=== PATIENT | female | born 1995 | race Caucasian/White ===

== ENCOUNTER → 2018-02-05 | Outpatient (CLI) | payer OTHER | LOC: M RAD 07:59 | DX: R10.11 Right upper quadrant pain (principal) ==

== ENCOUNTER → 2018-03-20 | Outpatient (CLI) | payer OTHER ==
[2018-03-20 10:47] LABS: ALBUMIN 4.2 GM/DL (3.2-5.2); ALBUMIN/GLOBULIN RATIO 1.27 (1.00-1.93); ALKALINE PHOSPHATASE 68 U/L (45-117); ALT/SGPT 21 U/L (12-78); AST/SGOT 13 U/L (7-37); BILIRUBIN,DIRECT 0.1 MG/DL (0.0-0.2); BILIRUBIN,TOTAL 0.4 MG/DL (0.2-1.0); TOTAL PROTEIN 7.5 GM/DL (6.4-8.2)
[2018-03-20 10:48] LABS: CONTROL LINE HPYORI INT CTR LINE PRESENT; H PYLORI QUALITATIVE IgG NEGATIVE (NEGATIVE)
[2018-03-22 14:14] LABS: ANTI-SMOOTH MUSCLE ANTIBODY 11 Units (0-19)
[2018-03-22 14:14] LABS: ANTI-MITOCHONDRIAL ANTIBODY 1.8 Units (0.0-20.0); ANTINUCLEAR ANTIBODIES DIRECT Negative (Negative); ENDOMYSIAL ABY IgA Negative (Negative); IGASUB2 73.7 mg/dL (73.2-301.2); IGASUB3 13.4 mg/dL (13.4-97.9); IgA SERUM (part of Subclasses) 91 mg/dL (87-352); LIVER-KIDNEY MICROSOMAL ABY 0.7 Units (0.0-20.0); TISSUE TRANSGLUTAMINASE IgA <2 U/mL (0-3)
== END ==
LOC: M LAB 09:34
DX: R10.11 Right upper quadrant pain (principal)

== ENCOUNTER 2018-04-02 05:55 | Day surgery (SDC) | payer OTHER ==
[2018-04-02] MEDS: NS 1,000 ML IV (07:02)
[2018-04-02] MEDS ORDERED: LIDOCAINE 2% INJ 100 MG/5 ML SDV (FOR ANES.) As Ordered (08:03)
[2018-04-02] MEDS ORDERED: PROPOFOL 200 MG/20 ML VIAL As Ordered ×3 (08:03→08:09)
== END 2018-04-02 08:46 | disposition home or self-care (01) ==
LOC: M OPP 05:55
DX: K62.5 Hemorrhage of anus and rectum (principal); R19.5 Other fecal abnormalities; R10.9 Unspecified abdominal pain; D12.3 Benign neoplasm of transverse colon; K64.8 Other hemorrhoids; Z88.0 Allergy status to penicillin; Z88.2 Allergy status to sulfonamides; Z79.899 Other long term (current) drug therapy; Z80.3 Family history of malignant neoplasm of breast; Z80.8 Family history of malignant neoplasm of other organs or systems; Z80.41 Family history of malignant neoplasm of ovary
CPT/HCPCS: 45385